=== PATIENT | female | born 1960 | race Caucasian/White ===

== ENCOUNTER → 2018-02-02 11:20 | Outpatient (CLI) | payer OTHER, SELFPAY ==
--- NOTE | 2018-02-02 | DI.MG.S_ITS ---
BILATERAL DIGITAL SCREENING MAMMOGRAM 3D/2D WITH CAD: 02/02/2018 CLINICAL: Routine screening. Family history of breast cancer. Comparison is made to exams dated: 02/21/2016 mammogram, 04/24/2014 mammogram, and 03/18/2013 mammogram - [facility]. The tissue of both breasts is heterogeneously dense. This may lower the sensitivity of mammography. Current study was also evaluated with a Computer Aided Detection (CAD) system. No significant masses, calcifications, or other findings are seen in either breast. There has been no significant interval change. IMPRESSION: NEGATIVE There is no mammographic evidence of malignancy. A 1 year screening mammogram is recommended. This exam was interpreted at Station ID: [id number]. NOTE: For mammograms, a report in lay terms will be sent to the patient. Approximately 15% of breast malignancies will not be visualized mammographically. In the management of a palpable breast mass, a negative mammogram must not discourage biopsy of a clinically suspicious lesion. Electronically Signed By: Zuhair ball/amy:02/02/2018 16:48:27 letter sent: Normal Exam ACR BI-RADS Category 1: Negative 3341F
== END ==
PROVIDERS: Family Provider Family Medicine; PCP Family Medicine
DX: Z12.31 Encounter for screening mammogram for malignant neoplasm of breast (principal); Z80.3 Family history of malignant neoplasm of breast
CPT/HCPCS: 77063; 77067

== ENCOUNTER → 2023-10-09 11:36 | Outpatient (CLI) | payer OTHER, SELFPAY ==
--- NOTE | 2023-10-09 11:39 | DI.MG.S_ITS ---
BILATERAL DIGITAL DIAGNOSTIC MAMMOGRAM 3D/2D: 10/09/2023 CLINICAL: Additional evaluation requested from prior study. Comparison is made to exams dated: 08/13/2023 mammogram - Outside facility, 02/02/2018 mammogram, and 02/21/2016 mammogram - [facility]. Both breasts are heterogeneously dense, which may obscure small masses (category c / 51-75% glandular tissue). There is an oval asymmetry in the right breast sub-areolar depth central to the nipple seen on the craniocaudal view only. There is an oval asymmetry in the left breast anterior depth central to the nipple seen on the craniocaudal view only. This is less prominent. There also is an oval focal asymmetry in the left breast central to the nipple posterior depth. No other significant masses or calcifications are seen in either breast. IMPRESSION: INCOMPLETE: NEEDS ADDITIONAL IMAGING EVALUATION The oval asymmetry in the right breast sub-areolar depth central to the nipple seen on the craniocaudal view only resembles a cyst and is indeterminate. The oval asymmetry in the left breast anterior depth central to the nipple seen on the craniocaudal view only resembles a cyst and is indeterminate. The oval focal asymmetry in the left breast central to the nipple posterior depth resembles a lymph node and is indeterminate. A targeted ultrasound is recommended and will immediately follow. Based on the Tyrer Cuzick model (a risk assessment model) the patient's lifetime risk is 8.3% and her 10 year risk is 3.9%. According to the ACR, ACS, and NCCN guidelines, an annual breast MRI exam along with mammogram is recommended if the patient's lifetime risk is 20% or greater. This exam was interpreted at Station ID: [id number]. NOTE: For mammograms, a report in lay terms will be sent to the patient. Approximately 15% of breast malignancies will not be visualized mammographically. In the management of a palpable breast mass, a negative mammogram must not discourage biopsy of a clinically suspicious lesion. Electronically Signed By: Trey Spivey M.D. [facility] [place]:10/09/2023 12:38:01 ACR BI-RADS Category 0: Incomplete 3340F
--- NOTE | 2023-10-09 11:40 | DI.US.S_ITS ---
LIMITED ULTRASOUND OF LEFT BREAST: 10/09/2023 CLINICAL: Patient returns today to evaluate an asymmetry in the left breast. Comparison is made to exams dated: 10/09/2023 mammogram - [facility], 08/13/2023 mammogram - Outside facility, and 02/02/2018 mammogram - [facility]. Color flow and real-time ultrasound of the left breast 6 o'clock and 9 o'clock regions were performed. Huerta scale images of the real-time examination were reviewed. There is a benign 0.9 cm x 0.9 cm x 0.3 cm oval cyst in the left breast at 9 o'clock anterior depth 1 cm from the nipple. This oval cyst is anechoic. This correlates with mammography findings. Color flow imaging demonstrates that there is no vascularity present. There also is a benign 0.4 cm x 0.4 cm x 0.2 cm lymph node in the left breast posterior depth 5 cm from the nipple. This lymph node is hypoechoic. This correlates with mammography findings. Color flow imaging demonstrates that there is no vascularity present. IMPRESSION: BENIGN There is no sonographic evidence of malignancy. The 0.9 cm oval cyst in the left breast at 9 o'clock anterior depth is benign. The 0.4 cm lymph node in the left breast posterior depth is benign. A 1 year screening mammogram is recommended. Exam findings were conveyed to the patient. This exam was interpreted at Station ID: [id number]. Electronically Signed By: Trey Spivey M.D. [facility]/:10/09/2023 13:53:05 letter sent: Normal Exam Ultrasound BI-RADS: 2 Benign
--- NOTE | 2023-10-09 11:40 | DI.US.S_ITS ---
LIMITED ULTRASOUND OF RIGHT BREAST: 10/09/2023 CLINICAL: Patient returns today to evaluate an asymmetry in the right breast. Comparison is made to exams dated: 10/09/2023 mammogram - [facility], 08/13/2023 mammogram - Outside facility, and 02/02/2018 mammogram - [facility]. Color flow and real-time ultrasound of the right breast 5 o'clock region were performed. Huerta scale images of the real-time examination were reviewed. There is a 0.8 cm x 0.7 cm x 0.4 cm oval cyst or duct in the right breast at 5 o'clock in the retroareolar region 1 cm from the nipple. This oval cyst is anechoic. This correlates with mammography findings. Color flow imaging demonstrates that there is no vascularity present. IMPRESSION: BENIGN There is no sonographic evidence of malignancy. The 0.8 cm cyst or duct in the right breast is benign. A 1 year screening mammogram is recommended. Exam findings were conveyed to the patient. This exam was interpreted at Station ID: [id number]. Electronically Signed By: Trey Spivey M.D. [facility] [place]/:10/09/2023 13:45:11 letter sent: Normal Exam Ultrasound BI-RADS: 2 Benign
== END ==
LOC: MAMMO 11:38
PROVIDERS: Family Provider Family Medicine; PCP Physician Assistant; Referring Provider Physician Assistant; Visit Provider Physician Assistant
DX: R92.8 Other abnormal and inconclusive findings on diagnostic imaging of breast (principal); N60.02 Solitary cyst of left breast; R92.333 Mammographic heterogeneous density, bilateral breasts
CPT/HCPCS: 76642; 77066; G0279

== ENCOUNTER 2025-01-23 09:42 | Day surgery (SDC) | payer MEDICARE, SELFPAY ==
--- NOTE | 2025-01-23 06:27 | PM.PREOP ---
Pre-operative Note Interval Note History & Physical reviewed/Exam performed by Physician: Yes Changes to H&P: No ASA Class (for procedural sedation): II
[2025-01-23 10:16] VITALS: BP 171/98; PULSE 72; RESP 18; TEMP 36.3; O2SAT 99
[2025-01-23] MEDS: LACTATED RINGERS 1,000 ML 42 ML IV (10:28)
[2025-01-23 11:25] VITALS: BP 158/90; PULSE 75; RESP 16; TEMP 37.2; O2SAT 98
--- NOTE | 2025-01-23 11:27 | PM.OP.COLON ---
Operative Date/Time/Diagnoses Date of procedure: 01/23/25 Time of procedure: : Pre-op diagnosis: +FIT, rectal bleeding Post-op diagnosis: other (Procedure aborted due to large volume of hard stool) Procedure & Clinicians Study performed: Colonoscopy attempted Same procedure(s) as scheduled: Yes Indications: +FIT, rectal bleeding Surgeon: Marcelo Overton Anesthesia Type: MAC +/- Procedure Notes SCOAP/Timeout: Performed Procedure in detail: Colonoscopy Patient placed in left lateral recumbent position. Time out was performed. Procedural sedation was administered by anesthesia. Examination began with a thorough inspection of the perianal area. There was no evidence of fissures, fistulae, external hemorrhoids or cutaneous malignancy. The colonoscope was then placed into the rectum and the lumen was insufflated with carbon dioxide. The scope was carefully advanced forward. We immediately encountered a large volume of hard balls of stool in the rectum. Unable to pass the scope past 10cm. It was as if no prep had been done. Procedure aborted due to inadequate prep. Procedure aborted due to large volume of hard stool Specimen(s): none sent Estimated Blood Loss: 5 Complications: none Impression: Procedure aborted due to large volume of hard stool Post-procedure Recommendations: Other recommendation(s) (Reschedule with office after prep) Plan for aftercare: PACU then home Follow up: as needed Disposition: PACU
[2025-01-23 11:32] VITALS: BP 168/85; PULSE 60; RESP 14; TEMP 37.1; O2SAT 97
[2025-01-23 11:40] VITALS: BP 175/98; PULSE 60; RESP 15; TEMP 37.1; O2SAT 99
[2025-01-23 11:50] VITALS: BP 171/89; PULSE 71; RESP 16; O2SAT 98
== END 2025-01-23 12:20 | disposition home or self-care (01) ==
PROVIDERS: PCP Internal Medicine; Referring Provider Internal Medicine; Visit Provider Surgery
PROC: 0DJD8ZZ Inspection of Lower Intestinal Tract, Via Natural or Artificial Opening Endoscopic (ICD-10-PCS; CPT 45378; principal; 2025-01-23 11:00)
DX: K62.5 Hemorrhage of anus and rectum (principal); R19.5 Other fecal abnormalities; Z53.09 Procedure and treatment not carried out because of other contraindication
CPT/HCPCS: 45378; J2704; J7120